=== PATIENT | female | born 1955 | race Caucasian/White ===

== ENCOUNTER → 2017-04-21 | Outpatient (CLI) | payer OTHER, BC | LOC: FCPNEURO 20:00 | PROVIDERS: ATTEND Psychiatry & Neurology Sleep Medicine | DX: G47.33 Obstructive sleep apnea (adult) (pediatric) (principal); G47.34 Idiopathic sleep related nonobstructive alveolar hypoventilation; G47.61 Periodic limb movement disorder ==